=== PATIENT | male | born 1990 | race Caucasian/White ===

== ENCOUNTER 2021-06-09 12:46 | Emergency (ER) | payer MEDICAID ==
[~2021-06-09] VITALS: Ht 177.8 cm; Wt 136.1 kg
[~2021-06-09 12:46] MED LIST: ACET-10509 PO
[2021-06-09 13:01] VITALS: BP 158/100
--- NOTE | 2021-06-09 13:08 | NUR ---
PT SENT TO ER LOBBY TO WAIT FOR AVAILABLE BED.
[2021-06-09] MEDS ORDERED: NACL 0.9% 1,000 ML IV ONE (13:30)
[2021-06-09] MEDS ORDERED: BACI-352 TP (13:46)
[2021-06-09] MEDS ORDERED: METF500T2 PO (13:46)
[2021-06-09] MEDS ORDERED: LOTC TP (13:46)
--- NOTE | 2021-06-09 14:00 | NUR ---
PT TAKEN TO BED 11.
[2021-06-09 14:09] LABS: BASOPHILS % (AUTO) 0.4 % (0.0-2.0); EOSINOPHILS # (AUTO) 0.1 K/uL (0-0.4); EOSINOPHILS % (AUTO) 1.6 % (0.0-4.0); HEMATOCRIT 44.3 % (36-52); HEMOGLOBIN 14.9 g/dL (12.0-18.0); LYMPHOCYTES # (AUTO) 1.9 K/uL (2.0-11.5); LYMPHOCYTES % (AUTO) 25.6 % (20.5-51.1); MEAN CORPUSCULAR HEMOGLOBIN 30 pg (27-31); MEAN CORPUSCULAR HGB CONC 34 g/dL (33-37); MEAN CORPUSCULAR VOLUME 89.9 fL (80-94); MONOCYTES # (AUTO) 0.4 K/uL (0.8-1.0); MONOCYTES % (AUTO) 5.8 % (1.7-9.3); NEUTROPHILS # (AUTO) 4.9 K/uL (1.8-7.7); NEUTROPHILS % (AUTO) 66.6 % (42.2-75.2); PLATELET COUNT (AUTO) 274 K/uL (140-450); RED BLOOD CELL COUNT(AUTO) 4.92 MIL/uL (4.20-6.10); RED CELL DISTRIBUTION WIDTH 13.1 % (11.6-13.7); WHITE BLOOD COUNT (AUTO) 7.4 K/uL (4.8-10.8)
--- NOTE | 2021-06-09 14:15 | NUR ---
31/M presents to ED with c/o foreskin swelling and drainage for 3 weeks. Patient states he felt swelling and tightness around his foreskin stating "its cracked." States some discharge, urinary frequency, and increased thirst. States he was seen at a clinic today for symptoms and had high blood sugar reading and glucose in his urine, stating he was told to report to the ED for evaluation. Denies any chest pain, shortness breath, fever, chills, flu symptoms, vomiting, diarrhea, dysuria. Accucheck 300 upon arrival to ED.
[2021-06-09 14:19] LABS: APPEARANCE,URINE CLEAR (CLEAR); BILIRUBIN,URINE NEGATIVE (NEGATIVE); BLOOD, URINE NEGATIVE (NEGATIVE); COLOR,URINE YELLOW (YELLOW); LEUKOCYTE ESTERASE ,URINE TRACE (NEGATIVE); NITRITE, URINE NEGATIVE (NEGATIVE); UGLUCOSE 3+ (NEGATIVE)
[2021-06-09 14:26] LABS: ALBUMIN 3.4 g/dL (3.4-5.0); ANION GAP 11.8 (8-16); CARBON DIOXIDE 26.2 mmol/L (21-32); CREATININE 0.7 mg/dL (0.6-1.3); TOTAL BILIRUBIN 0.4 mg/dL (0.0-1.0)
[2021-06-09 15:17] LABS: RBC,URINE 0-5 /HPF (0-5)
--- NOTE | 2021-06-09 15:20 | NUR ---
Patient resting in bed, awaiting results.
[2021-06-09 16:02] VITALS: BP 158/100
--- NOTE | 2021-06-09 16:02 | NUR ---
Patient discharged with v/s stable. Written and verbal after care instructions given about balanitis and type 2 diabetes and explained. Patient alert, oriented and verbalized understanding of instructions. Ambulatory with steady gait. All questions addressed prior to discharge. ID band removed. Patient advised to follow up with PMD. Rx of Lotrimin, glucophage, and neosporin ointment given. Patient educated on indication of medication including possible reaction and side effects. Opportunity to ask questions provided and answered.
--- NOTE | 2021-06-16 19:56 | NUR ---
LATE ENTRY- 0.9% NS BOLUS DISCONTINUED AT 1500
== END 2021-06-09 16:02 | disposition home or self-care (01) ==
LOC: MED 12:46
DX: E11.9 Type 2 diabetes mellitus without complications (principal); B37.9 Candidiasis, unspecified; Z79.84 Long term (current) use of oral hypoglycemic drugs; Z79.899 Other long term (current) drug therapy
CPT/HCPCS: 36415; 80053; 81001; 83036; 85025; 87086; 96360; 99283; J7030

== ENCOUNTER 2023-03-15 09:38 | Emergency (ER) | payer SELFPAY ==
[~2023-03-15] VITALS: Ht 177.8 cm; Wt 129.7 kg
[~2023-03-15 09:38] MED LIST changes: +BACI-352 TP; +LOTC TP; +METF-1139 PO
[2023-03-15 09:46] VITALS: BP 137/97
--- NOTE | 2023-03-15 09:51 | NUR ---
PT AMBULATED TO BED 8
--- NOTE | 2023-03-15 10:04 | NUR ---
32YO MALE PT C/O TIGHT 4/10 L SIDED CHEST PAIN X2HRS. REPORTS SUDDEN INTERMITTENT 20MIN EPISODES W/ L ARM NUMBING AND BLURRY VISION. DENIES N/V/D, SOB, TAKING MEDICATION OR PREVIOUS S/S. PT AAOX4, [employer] HX: HTN,DIABETES NKA
--- NOTE | 2023-03-15 10:39 | NUR ---
MD BOSS AT BEDSIDE FOR EVALUATION
[2023-03-15] MEDS ORDERED: FAMOTIDINE 20 MG TAB PO ONE (10:45)
[2023-03-15 11:46] LABS: BASOPHILS % (AUTO) 0.4 % (0.0-2.0); EOSINOPHILS # (AUTO) 0.1 K/uL (0-0.4); EOSINOPHILS % (AUTO) 1.2 % (0.0-4.0); HEMATOCRIT 46.4 % (36-52); HEMOGLOBIN 15.6 g/dL (12.0-18.0); LYMPHOCYTES # (AUTO) 1.5 K/uL (2.0-11.5); LYMPHOCYTES % (AUTO) 19.4 % (20.5-51.1); MEAN CORPUSCULAR HEMOGLOBIN 30 pg (27-31); MEAN CORPUSCULAR HGB CONC 34 g/dL (33-37); MEAN CORPUSCULAR VOLUME 89.3 fL (80-94); MONOCYTES # (AUTO) 0.5 K/uL (0.8-1.0); MONOCYTES % (AUTO) 6.9 % (1.7-9.3); NEUTROPHILS # (AUTO) 5.7 K/uL (1.8-7.7); NEUTROPHILS % (AUTO) 72.1 % (42.2-75.2); PLATELET COUNT (AUTO) 233 K/uL (140-450); WHITE BLOOD COUNT (AUTO) 7.8 K/uL (4.8-10.8)
[2023-03-15 11:53] VITALS: BP 125/88
[2023-03-15 11:59] LABS: ALBUMIN 3.7 g/dL (3.4-5.0); ANION GAP 8.8 (8-16); ASPARTATE AMINOTRANSFERASE 41 U/L (15-37); CARBON DIOXIDE 29.4 mmol/L (21-32); CHLORIDE 98 mmol/L (98-107); CREATININE 0.7 mg/dL (0.6-1.3); GFR ARICAN-AMERICAN 168 mL/min (>90); GLUCOSE 280 mg/dL (74-106); POTASSIUM 4.2 mmol/L (3.5-5.1); SODIUM SERUM 132 mmol/L (136-145); TOTAL BILIRUBIN 0.5 mg/dL (0.0-1.0); UREA NITROGEN, BLOOD 9 mg/dL (7-18)
[2023-03-15] MEDS ORDERED: METF-430 PO (12:23)
[2023-03-15] MEDS ORDERED: LISI5TAB18 PO (12:23)
--- NOTE | 2023-03-15 12:50 | NUR ---
Patient discharged with v/s stable. Written and verbal after care instructions FOR NONSPECIFIC CHEST PAIN given and explained. Patient alert, oriented and verbalized understanding of instructions. Ambulatory with steady gait. All questions addressed prior to discharge. ID band removed. Patient advised to follow up with PMD. Rx of ZESTRIL AND METFORMIN HCL given. Opportunity to ask questions provided and answered.
--- NOTE | 2023-03-15 12:53 | NUR ---
The patient's care was reviewed and supervised by Lynette Gallardo RN.
== END 2023-03-15 12:50 | disposition home or self-care (01) ==
LOC: MED 09:38
DX: R07.9 Chest pain, unspecified (principal); E11.9 Type 2 diabetes mellitus without complications; I10 Essential (primary) hypertension; K21.9 Gastro-esophageal reflux disease without esophagitis; Z79.4 Long term (current) use of insulin; Z79.899 Other long term (current) drug therapy
CPT/HCPCS: 36415; 71045; 80053; 84484; 85025; 93005; 99285

== ENCOUNTER 2023-09-06 19:53 | Emergency (ER) | payer OTHER ==
[~2023-09-06] VITALS: Ht 177.8 cm; Wt 115.7 kg
[~2023-09-06 19:53] MED LIST changes: +LISI5TAB18 PO; +METF-430 PO
[2023-09-06 20:24] VITALS: BP 128/73; PULSE 96; RESP 18; TEMP 97.4; O2SAT 99
[2023-09-07 00:01] VITALS: O2SAT 100
[2023-09-07 00:06] VITALS: BP 115/73; PULSE 84; RESP 21; O2SAT 100
== END 2023-09-07 00:47 | disposition home or self-care (01) ==
LOC: MED 19:53
DX: R07.89 Other chest pain (principal); E11.9 Type 2 diabetes mellitus without complications; Z79.899 Other long term (current) drug therapy
CPT/HCPCS: 71045; 93005; 99283

== ENCOUNTER 2024-01-03 13:29 | Emergency (ER) | payer OTHER ==
[~2024-01-03] VITALS: Ht 177.8 cm; Wt 122.5 kg
[2024-01-03 13:41] VITALS: BP 137/78; PULSE 83; RESP 18; TEMP 98; O2SAT 98
[2024-01-03 14:54] LABS: BASOPHILS % (AUTO) 0.4 % (0.0-2.0); EOSINOPHILS # (AUTO) 0.2 K/uL (0-0.4); EOSINOPHILS % (AUTO) 2.5 % (0.0-4.0); HEMATOCRIT 43.3 % (36-52); HEMOGLOBIN 14.7 g/dL (12.0-18.0); LYMPHOCYTES # (AUTO) 2.2 K/uL (2.0-11.5); LYMPHOCYTES % (AUTO) 28.8 % (20.5-51.1); MEAN CORPUSCULAR HEMOGLOBIN 30 pg (27-31); MEAN CORPUSCULAR HGB CONC 34 g/dL (33-37); MEAN CORPUSCULAR VOLUME 87.9 fL (80-94); MONOCYTES # (AUTO) 0.6 K/uL (0.8-1.0); MONOCYTES % (AUTO) 8.3 % (1.7-9.3); NEUTROPHILS # (AUTO) 4.5 K/uL (1.8-7.7); PLATELET COUNT (AUTO) 269 K/uL (140-450); RED BLOOD CELL COUNT(AUTO) 4.92 MIL/uL (4.20-6.10); RED CELL DISTRIBUTION WIDTH 13.4 % (11.6-13.7); WHITE BLOOD COUNT (AUTO) 7.5 K/uL (4.8-10.8)
[2024-01-03 15:00] LABS: ANION GAP 11.2 (8-16); CALCIUM 9.2 mg/dL (8.5-10.1); CARBON DIOXIDE 28.7 mmol/L (21-32); CREATININE 0.8 mg/dL (0.6-1.3); POTASSIUM 3.9 mmol/L (3.5-5.1)
[2024-01-03 15:05] LABS: ALBUMIN 3.7 g/dL (3.4-5.0); BILIRUBIN,DIRECT 0.1 mg/dL (0.0-0.3); TOTAL BILIRUBIN 0.1 mg/dL (0.0-1.0); TOTAL PROTEIN, SERUM 7.8 g/dL (6.4-8.2)
== END 2024-01-03 21:05 | disposition home or self-care (01) ==
LOC: MED 13:29
DX: R42 Dizziness and giddiness (principal); E11.9 Type 2 diabetes mellitus without complications; Z79.4 Long term (current) use of insulin; Z79.899 Other long term (current) drug therapy
CPT/HCPCS: 36415; 71045; 80048; 80076; 84484; 85025; 93005; 99285